=== PATIENT | male | born 1975 | race Caucasian/White ===

== ENCOUNTER 2024-03-27 16:03 | Emergency (ER) | payer BC, OTHER ==
[2024-03-27 16:21] VITALS: TEMP 98.2
--- NOTE | 2024-03-27 16:37 | ERPHSYRPT ---
- History of Present Illness Time Seen by Provider: 03/27/24 16:20 Source: patient Exam Limitations: no limitations Patient Subjective Stated Complaint: pt c/o of black tarry stools yesterday and one day about 3 weeks ago, pt reports having hemmrhoids and a fissure which does bleed bright red Triage Nursing Assessment: Pt brought self to the ER, vitals wnl, rates RUQ pain as 5/10, pulses normal, skin n/w/d, denies N&V, pt reports having blood work done at the [place] approx 3 weeks ago and all was normal, denies difficulty breathing, denies chest pain, was placed on acidopholus for his stomach from the [place] Physician History: Patient is a 48-year-old male presents to our emergency department for evaluation of right upper quadrant pain and black tarry stools observed today. Patient reports another episode of dark tarry stools 3 weeks ago. Patient's last colonoscopy was about 2 to 3 years ago. He states he had a polyp otherwise it was nonremarkable. Patient's right upper quadrant pain is intermittent. Tends to occur after meals. His gallbladder is intact. Symptoms are mild to moderate in intensity. No specific worsening or improving factors. Patient otherwise feels well. Patient voices no other complaints or concerns at this time. Portions of this note were created with voice recognition technology. There may be grammatical, spelling, punctuation or sound alike errors Timing/Duration: today Severity: moderate Modifying Factors: Improves With: nothing Associated Symptoms: denies symptoms Allergies/Adverse Reactions: No Known Drug Allergies Allergy (Verified 03/27/24 16:24) Home Medications: Testosterone Cypionate 0.5 ml IM WEEKLY 03/27/24 [History] Hx Influenza Vaccination/Date Given: No Hx Pneumococcal Vaccination/Date Given: No Travel Risk - International Travel Have you traveled outside of the country in past 3 weeks: No - Emerging Infectious Disease Are you exhibiting symptoms associated with any current EIDs: Yes Symptoms: Abdominal Pain - Review of Systems Constitutional: No Symptoms, No Fever, No Chills Eyes: No Symptoms Ears, Nose, & Throat: No Symptoms Respiratory: No Symptoms, No Cough, No Dyspnea Cardiac: No Symptoms, No Chest Pain, No Edema, No Syncope Abdominal/Gastrointestinal: No Symptoms, No Abdominal Pain, No Nausea, No Vomiting, No Diarrhea Genitourinary Symptoms: No Symptoms, No Dysuria Musculoskeletal: No Symptoms, No Back Pain, No Neck Pain Skin: No Symptoms, No Rash Neurological: No Symptoms, No Dizziness, No Focal Weakness, No Sensory Changes Psychological: No Symptoms Endocrine: No Symptoms Hematologic/Lymphatic: No Symptoms Immunological/Allergic: No Symptoms All Other Systems: Reviewed and Negative - Past Medical History Pertinent Past Medical History: Yes Other Medical History: low testosterone - Past Surgical History Past Surgical History: No Gastrointestinal: Appendectomy Musculoskeletal: Orthopedic Surgery Other Surgical History: left index finger put back on - Social History Smoking Status: Former smoker Exposure to second hand smoke: No Drug Use: none - Social Determinants of Health Will the patient participate in the screening: Yes Do you worry about a steady place to live?: No Do you have any problems with any of the following?: No known problems In the past 12 months,have you had to go without utilities?: No Transportation Issues: No Has anyone in your support network made you feel unsafe?: No Have you or anyone in your house had to go w/o enough food: No - Nursing Vital Signs Nursing Vital Signs: Initial Vital Signs Temperature 98.2 F 03/27/24 16:07 Pulse Rate 79 03/27/24 16:07 Blood Pressure 132/84 03/27/24 16:07 O2 Sat by Pulse Oximetry 99 03/27/24 16:07 Pain Scale Pain Intensity 5 - Physical Exam General Appearance: no apparent distress, alert Eye Exam: PERRL/EOMI, eyes nml inspection Ears, Nose, Throat Exam: normal ENT inspection, moist mucous membranes Neck Exam: normal inspection, full range of motion Respiratory Exam: normal breath sounds, lungs clear, airway intact, No respiratory distress Cardiovascular Exam: regular rate/rhythm, normal peripheral pulses Gastrointestinal/Abdomen Exam: soft, normal bowel sounds, other (No tenderness to palpation. Patient states that his right upper quadrant pain is deep and not reproduced with palpation), No tenderness, No mass Back Exam: normal inspection, normal range of motion, No CVA tenderness, No vertebral tenderness Extremity Exam: normal inspection, normal range of motion, pelvis stable Neurologic Exam: alert, oriented x 3, cooperative, normal mood/affect, sensation nml, No motor deficits Skin Exam: normal color, warm, dry, No rash Lymphatic Exam: No adenopathy SpO2 Interpretation: normal SpO2: 99 O2 Delivery: Room Air - Course Nursing assessment & vital signs reviewed: Yes - CT Exams Abdomen/Pelvis CT Interpretation: Tele-radiologist Report (Small hiatal hernia with loop of small bowel herniating) Ordered Tests: Active Orders 24 hr Category Date Time Status IV Insertion STAT Care 03/27/24 16:31 Active ABDOMEN AND PELVIS W CONTRAST [CT] Stat Exams 03/27/24 16:31 Taken CBC W DIFF Stat Lab 03/27/24 16:30 Completed CMP Stat Lab 03/27/24 17:15 Completed LIPASE Stat Lab 03/27/24 17:15 Completed TROPONIN Q4H Lab 03/28/24 00:45 Ordered UA W/RFX UR CULTURE Stat Lab 03/27/24 16:44 Completed Medication Summary Discontinued Medications Generic Name Dose Route Start Last Admin Trade Name Freq PRN Reason Stop Dose Admin Sodium Chloride 1,000 mls @ 999 mls/hr 03/27/24 16:31 03/27/24 18:24 Sodium Chloride 0.9% 1000 Ml IV 03/27/24 17:31 Infused .Q1H1M STA Infusion Sodium Chloride Confirm 03/27/24 16:45 Sodium Chloride 0.9% 1000 Ml Administered 03/27/24 16:46 Dose 1,000 mls @ ud .ROUTE .STK-MED ONE Lab/Rad Data: Laboratory Result Diagrams 03/27/24 16:30 03/27/24 17:15 Laboratory Results 03/27/24 03/27/24 03/27/24 Range/Units 17:15 16:44 16:30 WBC 10.1 H (4.23-9.07) x10^3/uL RBC 5.42 (4.63-6.08) x10^6/uL Hgb 17.0 (13.7-17.5) g/dL Hct 49.1 (40.1-51.0) % MCV 90.6 (79.0-92.2) fL MCH 31.4 (25.7-32.2) pg MCHC 34.6 (32.3-36.5) g/dL RDW 13.7 (11.6-14.4) % Plt Count 279 (163-337) x10^3/uL MPV 10.5 (9.4-12.4) fL Gran % 53.4 (34.0-67.9) % Immature Gran % (Auto) 0.5 H (0.001-0.429) % Nucleat RBC Rel Count 0.0 (0.00-0.2) % Eos # (Auto) 0.31 (0.04-0.54) x10^3/uL Immature Gran # (Auto) 0.05 H (0.001-0.031) x10^3u/L Absolute Lymphs (auto) 3.15 (1.32-3.57) x10^3/uL Absolute Monos (auto) 1.12 H (0.30-0.82) x10^3/uL Absolute Nucleated RBC 0.00 (0.00-0.012) x10^3u/L Lymphocytes % 31.2 (21.8-53.1) % Monocytes % 11.1 (5.3-12.2) % Eosinophils % 3.1 (0.8-7.0) % Basophils % 0.7 (0.2-1.2) % Absolute Granulocytes 5.41 H (1.78-5.38) x10^3/uL Basophils # 0.07 (0.01-0.08) x10^3/uL Sodium 141 (135-145) mmol/L Potassium 4.3 (3.5-5.1) mmol/L Chloride 106 (98-107) mmol/L Carbon Dioxide 28 (22-30) mmol/L Anion Gap 11.8 (5-15) MEQ/L BUN 13 (9-20) mg/dL Creatinine 1.14 (0.66-1.25) mg/dL Estimated GFR 79.3 ML/MIN Glucose 81 (74-106) mg/dL Calcium 9.2 (8.4-10.2) mg/dL Total Bilirubin 0.40 (0.2-1.3) mg/dL AST 36 (17-59) U/L ALT 62 H (0-50) U/L Alkaline Phosphatase 46 (38-126) U/L Serum Total Protein 6.3 (6.3-8.2) g/dL Albumin 4.1 (3.5-5.0) g/dL Lipase 99 (23-300) U/L Urine Color Yellow (Yellow) Urine Appearance Clear (Clear) Urine pH 7.0 (4.6-8.0) Ur Specific [place] 1.025 (1.005-1.030) Urine Protein Negative (Negative) Urine Glucose (UA) Negative (Negative) mg/dL Urine Ketones Negative (Negative) Urine Blood Negative (Negative) Urine Nitrite Negative (Negative) Urine Bilirubin Negative (Negative) Urine Urobilinogen 1.0 A (0.2) mg/dL Ur Leukocyte Esterase Negative (Negative) U Hyaline Cast (Auto) NONE SEEN (0-2) /LPF Urine Microscopic RBC 0-2 (0-5) /HPF Urine Microscopic WBC 0-2 (0-5) /HPF Ur Epithelial Cells None Seen (None Seen) /HPF Urine Bacteria None Seen (None Seen) /HPF Urine Culture Reflexed NO (NO) - Progress Progress: improved Progress Note: Patient is a 48-year-old male presents to our ED for evaluation of right upper quadrant pain and dark stools. Physical exam essentially nonremarkable. Laboratory workup essentially nonremarkable. Hemoglobin 17. Hemoglobin is high end of normal however patient is on testosterone supplementation secondary to low T. CT scan reveals diffuse fecal stasis. Fatty liver otherwise normal. Patient advised to try a laxative. Patient aware of the small umbilical hernia observed on today's CAT scan. Patient reports "it has been there for years". Patient is asymptomatic from this regard. Patient reassessed. He is resting comfortably. No indication for further workup at this time. Patient agrees to follow-up with his primary care doctor within 48 hours for reevaluation. Portions of this note were created with voice recognition technology. There may be grammatical, spelling, punctuation or sound alike errors Complexity of problem addressed is moderate acute complicated. No critical care time. Complex of data reviewed and analyzed is moderate. Test ordered test reviewed results analyzed and correlated clinically with history and physical exam. Risk of complication and or risk of morbidity/mortality of patient management is low. Vital stable. Time spent to discharge patient is approximately 15 minutes. Plan of care established for shared decision making. No social determinants of health present to impede follow-up. Portions of this note were created with voice recognition technology. There may be grammatical, spelling, punctuation or sound alike errors 03/27/24 20:41 Counseled pt/family regarding: lab results, diagnosis, need for follow-up, rad results - Departure Departure Disposition: Home Clinical Impression: Abdominal pain, Dark stools Condition: Stable Critical Care Time: No Referrals: DONNIE CAMARGO NP [Primary Care Provider] - Follow up/PCP as directed LUZ LACY [ACTIVE STAFF] - Follow up/PCP as directed Additional Instructions: Discharge/Care Plan SITA WEBSTER was seen on 03/27/24 in the Emergency Room. The patient was counseled regarding Diagnosis,Lab results, Imaging studies, need for follow up and when to return to the Emergency Room. Prescriptions given: Discharge Note I have spoken with the patient and/or caregivers. I have explained the patient's condition, diagnosis and treatment plan based on the information available to me at this time. I have answered the patient's and/or caregiver's questions and addressed any concerns. The patient and/or caregivers have as good understanding of the patient's diagnosis, condition and treatment plan as can be expected at this point. The vital signs have been stable. The patient's condition is stable and appropriate for discharge from the emergency department. The patient will pursue further outpatient evaluation with the primary care physician or other designated or consulting physician as outlined in the discharge instructions. The patient and/or caregivers are agreeable to this plan of care and follow-up instructions have been explained in detail. The patient and/or caregivers have received these instruction. The patient/and or caregivers are aware that any significant change in condition or worsening of symptoms should prompt an immediate return to this or the closest emergency department or call 911.
[2024-03-27] MEDS ORDERED: Sodium Chloride 0.9% 1000 ML 1,000 ML ONE (16:45)
[2024-03-27] MEDS: Sodium Chloride 0.9% 1000 ML 1,000 ML IV STA (16:48)
[2024-03-27 16:49] LABS: Absolute Neutrophil Ct (ANC) 5.41 x10^3/uL (1.78-5.38); BASOPHIL % 0.7 % (0.2-1.2); Basophil (Absolute #) 0.07 x10^3/uL (0.01-0.08); Eosinophil % 3.1 % (0.8-7.0); Eosinophil (Absolute #) 0.31 x10^3/uL (0.04-0.54); Hematocrit 49.1 % (40.1-51.0); IMMATURE GRAN # 0.05 x10^3u/L (0.001-0.031); IMMATURE GRAN % 0.5 % (0.001-0.429); Lymphocyte (Absolute #) 3.15 x10^3/uL (1.32-3.57); Lymphocytes % 31.2 % (21.8-53.1); Mean Cell Volume 90.6 fL (79.0-92.2); Mean Corpuscular Hemoglobin 31.4 pg (25.7-32.2); Mean Corpuscular Hgb Concent. 34.6 g/dL (32.3-36.5); Mean Platelet Volume 10.5 fL (9.4-12.4); Monocyte (Absolute #) 1.12 x10^3/uL (0.30-0.82); Monocytes % 11.1 % (5.3-12.2); Neutrophil % 53.4 % (34.0-67.9); Platelet Count 279 x10^3/uL (163-337); Red Blood Count 5.42 x10^6/uL (4.63-6.08); Red Cell Distribution Width 13.7 % (11.6-14.4); White Blood Count 10.1 x10^3/uL (4.23-9.07)
[2024-03-27 16:50] LABS: Appearance Clear (Clear); Bacteria None Seen /HPF (None Seen); Bilirubin Negative (Negative); Blood Negative (Negative); Epithelial Cells None Seen /HPF (None Seen); Glucose, Urine Negative (Negative); Hyaline Casts NONE SEEN /LPF (0-2); Ketones Negative (Negative); Leukocyte Esterase Negative (Negative); Nitrite Negative (Negative); Protein,Urine Dip Negative (Negative); RBC 0-2 /HPF (0-5); Specific Gravity 1.025 (1.005-1.030); WBC 0-2 /HPF (0-5)
[2024-03-27 17:38] LABS: ALBUMIN 4.1 g/dL (3.5-5.0); ANION GAP 11.8 MEQ/L (5-15); BILIRUBIN,TOTAL 0.4 mg/dL (0.2-1.3); Calcium 9.2 mg/dL (8.4-10.2); Creatinine 1 1.14 mg/dL (0.66-1.25); EST GLOMERULAR FILTRATION RATE 79.3 ML/MIN; Potassium 4.3 mmol/L (3.5-5.1); Total Protein 6.3 g/dL (6.3-8.2)
[2024-03-27 20:11] VITALS: BP 128/83; PULSE 84; RESP 21
[2024-03-27 20:45] VITALS: O2SAT 99
[2024-03-27 21:23] LABS: IFOB TEST RESULTS POSITIVE (NEGATIVE)
--- NOTE | 2024-03-28 08:44 | XRAY ---
Indication: Chronic right upper quadrant pain 1 year. Black stools. Multiple contiguous axial images obtained through the abdomen and pelvis using 80 cc Isovue 370 contrast. Comparison: None Lung bases demonstrate minimal right middle lobe subsegmental atelectasis/scarring. No infiltrate or effusion. Heart not enlarged. Noncontrasted stomach and bowel loops appear nonobstructed. Appendectomy reported. Mild diffuse scattered colonic fecal debris. Diffuse fatty liver. No free fluid/air. Remaining liver, gallbladder, pancreas, spleen, adrenal glands, kidneys, ureters, bladder, and aorta are unremarkable. No pathologic retroperitoneal lymphadenopathy. Osseous structures intact with minimal/mild degenerative changes throughout spine. Small umbilical hernia with herniated loop of small bowel without complications. Impression: Mild diffuse fecal stasis, fatty liver, and small noncomplicated umbilical hernia. Remaining CT abdomen/pelvis with contrast exam is negative.
== END 2024-03-27 20:46 | disposition home or self-care (01) ==
LOC: ED 16:03
DX: K92.1 Melena (principal); R10.11 Right upper quadrant pain; Z79.899 Other long term (current) drug therapy
CPT/HCPCS: 36415; 74177; 80053; 81001; 83690; 85025; 96360; 96361; 99284; G0328; 82274